=== PATIENT | male | born 1955 | race Caucasian/White ===

== ENCOUNTER 2018-05-08 16:38 | Observation (INO) | payer OTHER ==
[2018-05-08 19:45] LABS: Absolute Lymphocytes (CBC) 0.7 K/uL (0.7-4.9); Absolute Monocytes 1.1 K/uL (0.1-1.3); Absolute Neutrophil 15.5 K/uL (1.8-8.0); Basophils % 0.1 % (0-1.3); Eosinophils % 0.1 % (0-4.4); Hematocrit 42.3 % (39.6-49.0); Lymphocytes % 4.2 % (15.3-44.8); MPV 8.6 fL (7.6-11.3); Monocytes % 6.4 % (3.3-12.3); RBC Red Blood Cell Count 4.53 M/uL (4.33-5.43)
--- NOTE | 2018-05-08 19:55 | ER ---
Nurse's Notes [facility] Name: Dav Beaver Age: 63 yrs Sex: Male : 1955 Arrival Date: 05/08/2018 Time: 16:43 Bed 8 Private MD: None, None Diagnosis: Cystitis-prostatitis;Retention of urine;Fever, unspecified Presentation: 05/08 16:53 Presenting complaint: Patient states: Difficulty urinating and lower abdominal pain x 2 hb days. Transition of care: patient was not received from another setting of care. Onset of symptoms was May 07, 2018. Risk Assessment: Do you want to hurt yourself or someone else?. Care prior to arrival: None. 16:53 Method Of Arrival: Ambulatory hb 16:53 Acuity: MAURICIO 3 hb 19:15 Initial Sepsis Screen: Does the patient meet any 2 criteria? Temp <36.0*C (96.8*F)) or ea > 38.3*C (100.9*F). HR > 90 bpm. Yes Does the patient have a suspected source of infection? No. Patient's initial sepsis screen is negative. Historical: - Allergies: 16:54 No Known Allergies; hb - Immunization history:: Adult Immunizations up to date. - Social history:: Smoking status: Patient/guardian denies using tobacco. - Ebola Screening: : No symptoms or risks identified at this time. - Family history:: not pertinent. - Hospitalizations: : No recent hospitalization is reported. Screenin:13 Abuse screen: Denies threats or abuse. Denies injuries from another. Nutritional bp screening: No deficits noted. Tuberculosis screening: No symptoms or risk factors identified. Fall Risk None identified. Assessment: 18:30 General: Appears in no apparent distress. uncomfortable, obese, Behavior is bp cooperative, appropriate for age, anxious. Pain: Complains of pain in pelvis. Neuro: Level of Consciousness is awake, alert, obeys commands, Oriented to person, place, time, situation, Appropriate for age. Cardiovascular: No deficits noted. Respiratory: Airway is patent is compromised Respiratory effort is even, unlabored, Respiratory pattern is regular, symmetrical. GI: No signs and/or symptoms were reported involving the gastrointestinal system. : Reports inability to void. EENT: No deficits noted. Derm: No deficits noted. Musculoskeletal: Circulation, motion, and sensation intact. Range of motion: intact in all extremities. 19:07 Reassessment: BLADDER SCAN 250ML. bp 19:15 General: Appears uncomfortable, Behavior is cooperative, appropriate for age. Pain: tl2 Complains of pain in pelvis. Neuro: Level of Consciousness is awake, alert, obeys commands, Oriented to person, place, time, situation. Cardiovascular: Patient's skin is warm and dry. Respiratory: Airway is patent Respiratory effort is even, unlabored, Respiratory pattern is regular, symmetrical. GI: No signs and/or symptoms were reported involving the gastrointestinal system. : Conn in place to gravity drainage Reports inability to void. Derm: No signs and/or symptoms reported regarding the dermatologic system. Skin is pink, warm \T\ dry. Musculoskeletal: Circulation, motion, and sensation intact. 20:30 Reassessment: Patient and/or family updated on plan of care and expected duration. Pain ea level reassessed. Patient is alert, oriented x 3, equal unlabored respirations, skin warm/dry/pink. 21:55 Reassessment: Patient and/or family updated on plan of care and expected duration. Pain ea level reassessed. Patient is alert, oriented x 3, equal unlabored respirations, skin warm/dry/pink. 22:23 Reassessment: Patient and/or family updated on plan of care and expected duration. Pain ea level reassessed. Patient is alert, oriented x 3, equal unlabored respirations, skin warm/dry/pink. Pt taken to fourth floor via stretcher per tech, pt tolerating well. Vital Signs: 16:53 BP 168 / 88; Pulse 115; Resp 20; Temp 100.7; Pulse Ox 98% on R/A; Pain 9/10; hb 19:15 BP 157 / 77; Pulse 118; Resp 19; Pulse Ox 97% ; ea 21:37 BP 135 / 67; Pulse 91; Resp 19; Temp 98.7(O); Pulse Ox 95% on R/A; ea 22:24 BP 117 / 64; Pulse 90; Resp 18; Pulse Ox 95% on R/A; ea ED Course: 16:43 Patient arrived in ED. sb2 16:44 None, None is Private Physician. sb2 16:54 Triage completed. hb 16:54 Arm band placed on. hb 18:00 Akash Crockett MD is Attending Physician. rn 18:13 Graham Chan, CHIP is Primary Nurse. bp 19:06 Conn cath inserted, using sterile technique, 18 Fr., by me, balloon inflated, to bp gravity drainage. 19:13 Patient has correct armband on for positive identification. Placed in gown. Bed in low bp position. Call light in reach. Side rails up X2. Adult w/ patient. 19:22 Attending Physician role handed off by Akash Crockett MD [facility] 19:22 Doc Alfonso MD is Attending Physician. tigist 19:25 Inserted saline lock: 20 gauge in left antecubital area, using aseptic technique. ea 19:[address] via stretcher. nj 19:52 Best Jaimes MD is Hospitalizing Provider. tigist 19:59 CT Stone Protocol In Process Unspecified. EDMS 20:07 XRAY Chest (1 view) In Process Unspecified. EDMS 21:33 No provider procedures requiring assistance completed. Patient admitted, IV remains in ea place. Administered Medications: 19:58 Drug: Rocephin - (cefTRIAXone) 2 grams Route: IVPB; Infused Over: 30 mins; Site: left ea antecubital; 20:34 Follow up: Response: No adverse reaction; IV Status: Completed infusion ea 20:00 Drug: NS 0.9% 1000 ml Route: IV; Rate: 1 bolus; Site: left antecubital; ea 22:26 Follow up: IV Status: Infusion continued upon admission ea 20:33 Drug: Flomax 0.4 mg Route: PO; ea 21:39 Follow up: Response: No adverse reaction ea 20:34 Drug: levofloxacin 500 mg Volume: 100 ml; Route: IVPB; Infused Over: 60 mins; Site: ea left antecubital; 21:38 Follow up: Response: No adverse reaction; IV Status: Completed infusion ea 21:30 Drug: Zofran 4 mg Route: IVP; Site: left antecubital; ea 22:16 Follow up: Response: No adverse reaction; Marked relief of symptoms ea 21:35 Drug: fentaNYL (PF) 25 mcg Route: IVP; Site: left antecubital; ea 22:00 Follow up: Response: No adverse reaction; Pain is decreased ea 21:38 Drug: Magnesium Sulfate 1 grams Route: IVPB; Infused Over: 1 hrs; Site: left ea antecubital; 21:48 Follow up: Response: No adverse reaction; IV Status: Infusion continued upon admission; ea IV Intake: 20ml 22:15 Drug: fentaNYL (PF) 25 mcg Route: IVP; Site: left antecubital; ea 22:24 Follow up: Response: No adverse reaction ea 22:25 Follow up: Response: Pain is decreased ea Intake: 21:48 IV: 20ml; Total: 20ml. ea Outcome: 19:54 Decision to Hospitalize by Provider. tigist 21:34 Instructed on the need for admit. ea 22:09 Admitted to Med/surg accompanied by tech, room 416, with chart, Report called to Raymundo montgomery RN on fourth floor 22:09 Condition: stable 22:31 Patient left the ED. ea Signatures: Dispatcher [employer] EDMS Doc Alfonso MD MD cha Nieto, Roman, MD MD rn Baxter, Heather, RN RN Lissa Palacios RN RN tl2 Judd Walsh Elena RN RN Graham Lopez RN RN Tonya Worthington sb2 Corrections: (The following items were deleted from the chart) 16:54 16:53 Acuity: MAURICIO 2 hb hb
--- NOTE | 2018-05-08 19:55 | EDPHYS ---
Physician Documentation [facility] Name: Dav Beaver Age: 63 yrs Sex: Male : 1955 Arrival Date: 05/08/2018 Time: 16:43 Bed 8 Private MD: None, None ED Physician Doc Alfonso HPI: 05/08 18:10 This 63 yrs old Male presents to ER via Ambulatory with complaints of Urinary rn Retention. 18:10 The patient presents with abdominal pain in the lower abdomen. rn 18:11 Onset: The symptoms/episode began/occurred 2 day(s) ago. The symptoms do not radiate. rn The symptoms are described as intermittent, sharp. Modifying factors: The symptoms are alleviated by nothing, the symptoms are aggravated by touching the area. Severity of pain: At its worst the pain was moderate in the emergency department the pain is unchanged. The patient has not experienced similar symptoms in the past. Reports for last 2 days increased difficulty urinating and lower abd pain. Feels like has UTI. Seen at clinic today, told had UTI, was urinating a little but hasn't been able to empty in 30 hours.. Historical: - Allergies: 16:54 No Known Allergies; hb - Immunization history:: Adult Immunizations up to date. - Social history:: Smoking status: Patient/guardian denies using tobacco. - Ebola Screening: : No symptoms or risks identified at this time. - Family history:: not pertinent. - Hospitalizations: : No recent hospitalization is reported. ROS: 18:13 Constitutional: + fever Eyes: Negative for injury, pain, redness, and discharge, Neck: rn Negative for injury, pain, and swelling, Cardiovascular: Negative for chest pain, palpitations, and edema, Respiratory: Negative for shortness of breath, cough, wheezing, and pleuritic chest pain, Abdomen/GI: + lower abd pain : + urinary retention MS/Extremity: Negative for injury and deformity, Skin: Negative for injury, rash, and discoloration, Neuro: Negative for headache, weakness, numbness, tingling, and seizure. Exam: 18:13 Constitutional: This is a well developed, well nourished patient who is awake, alert, rn appears a little uncomfortable Head/Face: Normocephalic, atraumatic. Eyes: Pupils equal round and reactive to light, extra-ocular motions intact. Lids and lashes normal. Conjunctiva and sclera are non-icteric and not injected. Cornea within normal limits. Periorbital areas with no swelling, redness, or edema. ENT: dry MM Cardiovascular: tachycardic, regular, no murmur Respiratory: Lungs have equal breath sounds bilaterally, clear to auscultation. No increased work of breathing, no retractions or nasal flaring. Abdomen/GI: soft, mild suprapubic tenderness, no rebound MS/ Extremity: Pulses equal, no cyanosis. Neurovascular intact. Full, normal range of motion. Equal circumference. Neuro: Awake and alert, GCS 15, oriented to person, place, time, and situation. Cranial nerves II-XII grossly intact. Motor strength 5/5 in all extremities. Sensory grossly intact. Cerebellar exam normal. Vital Signs: 16:53 BP 168 / 88; Pulse 115; Resp 20; Temp 100.7; Pulse Ox 98% on R/A; Pain 9/10; hb 19:15 BP 157 / 77; Pulse 118; Resp 19; Pulse Ox 97% ; ea 21:37 BP 135 / 67; Pulse 91; Resp 19; Temp 98.7(O); Pulse Ox 95% on R/A; ea 22:24 BP 117 / 64; Pulse 90; Resp 18; Pulse Ox 95% on R/A; ea MDM: 18:00 Patient medically screened. rn 19:22 Patient medically screened. [facility] 19:55 Data reviewed: vital signs, nurses notes, lab test result(s), EKG, radiologic studies, [facility] CT scan, plain films. 05/08 18:07 Order name: Urine Microscopic Only; Complete Time: 21: 05/08 18:07 Order name: Urine Culture rn 05/08 18:07 Order name: CBC with Diff; Complete Time: 21: 05/08 18:07 Order name: Basic Metabolic Panel; Complete Time: 21: 05/08 18:07 Order name: Blood Culture Adult (2) rn 05/08 18:07 Order name: Procalcitonin; Complete Time: 21: 05/08 19:41 Order name: LFT's; Complete Time: 21: [facility] 05/08 19:41 Order name: Magnesium; Complete Time: 21: [facility] 05/08 19:41 Order name: NT PRO-BNP; Complete Time: 21:09 [facility] 05/08 19:41 Order name: PT-INR; Complete Time: 21:09 [facility] 05/08 19:41 Order name: Troponin (emerg Dept Use Only); Complete Time: 21:09 [facility] 05/08 19:41 Order name: XRAY Chest (1 view); Complete Time: 21:09 [facility] 05/08 20:18 Order name: CBC Smear Scan; Complete Time: 21:09 [facility] 05/08 20:22 Order name: Urine Dipstick--Ancillary (enter results) [place] 05/08 18:07 Order name: Conn; Complete Time: 19:06 rn 05/08 18:07 Order name: Urine Dipstick-Ancillary (obtain specimen); Complete Time: 20:36 05/08 18:07 Order name: IV Start; Complete Time: 19:51 05/08 19:41 Order name: EKG; Complete Time: 19:42 [facility] 05/08 19:41 Order name: CT Stone Protocol; Complete Time: 21:09 [facility] 05/08 20:32 Order name: CONS Pharmacy Consult [facility] 05/08 20:32 Order name: CONS Physician Consult [facility] 05/08 20:32 Order name: Regular [facility] 05/08 18:13 Order name: Bladder Scanner; Complete Time: 19:07 05/08 19:41 Order name: Cardiac monitoring; Complete Time: 19:52 [facility] 05/08 19:41 Order name: EKG - Nurse/Tech; Complete Time: 20:35 [facility] 05/08 19:41 Order name: Labs collected and sent; Complete Time: 19:52 [facility] 05/08 19:41 Order name: O2 Per Protocol; Complete Time: 19:52 [facility] 05/08 19:41 Order name: O2 Sat Monitoring; Complete Time: 19:52 [facility] Administered Medications: 19:58 Drug: Rocephin - (cefTRIAXone) 2 grams Route: IVPB; Infused Over: 30 mins; Site: left ea antecubital; 20:34 Follow up: Response: No adverse reaction; IV Status: Completed infusion ea 20:00 Drug: NS 0.9% 1000 ml Route: IV; Rate: 1 bolus; Site: left antecubital; ea 22:26 Follow up: IV Status: Infusion continued upon admission ea 20:33 Drug: Flomax 0.4 mg Route: PO; ea 21:39 Follow up: Response: No adverse reaction ea 20:34 Drug: levofloxacin 500 mg Volume: 100 ml; Route: IVPB; Infused Over: 60 mins; Site: ea left antecubital; 21:38 Follow up: Response: No adverse reaction; IV Status: Completed infusion ea 21:30 Drug: Zofran 4 mg Route: IVP; Site: left antecubital; ea 22:16 Follow up: Response: No adverse reaction; Marked relief of symptoms ea 21:35 Drug: fentaNYL (PF) 25 mcg Route: IVP; Site: left antecubital; ea 22:00 Follow up: Response: No adverse reaction; Pain is decreased ea 21:38 Drug: Magnesium Sulfate 1 grams Route: IVPB; Infused Over: 1 hrs; Site: left ea antecubital; 21:48 Follow up: Response: No adverse reaction; IV Status: Infusion continued upon admission; ea IV Intake: 20ml 22:15 Drug: fentaNYL (PF) 25 mcg Route: IVP; Site: left antecubital; ea 22:24 Follow up: Response: No adverse reaction ea 22:25 Follow up: Response: Pain is decreased ea Disposition: 05/08/18 19:54 Hospitalization ordered by Best Jaimes for Inpatient Admission. Preliminary diagnosis are Cystitis - prostatitis, Retention of urine, Fever, unspecified. - Bed requested for Telemetry/MedSurg (Inpatient). - Status is Inpatient Admission. ea - Condition is Fair. - Problem is new. - Symptoms have improved. UTI on Admission? Yes Signatures: Dispatcher [employer] EDMS Susan Felipe RN RN kl Anderson, Corey, MD MD cha Nieto, Roman, MD MD rn Baxter, Heather, RN RN hb Antunez, Elena, RN RN ea Corrections: (The following items were deleted from the chart) : 19:54 Hospitalization Ordered by Best Jaimes MD for Inpatient Admission. Preliminary agueda diagnosis is Cystitis - prostatitis; Retention of urine; Fever, unspecified. Bed requested for Telemetry/MedSurg (Inpatient). Status is Inpatient Admission. Condition is Fair. Problem is new. Symptoms have improved. UTI on Admission? Yes. tigist 22:31 21:26 05/08/2018 19:54 Hospitalization Ordered by Best Jaimes MD for Inpatient ea Admission. Preliminary diagnosis is Cystitis - prostatitis; Retention of urine; Fever, unspecified. Bed requested for Telemetry/MedSurg (Inpatient). Status is Inpatient Admission. Condition is Fair. Problem is new. Symptoms have improved. UTI on Admission? Yes. kl
--- NOTE | 2018-05-08 20:07 | RAD REPORT ---
EXAM DESCRIPTION: CT - Stone Protocol - 05/08/2018 7:59 pm CLINICAL HISTORY: Abdominal pain, flank pain, difficulty urinating COMPARISON: CT imaging November 2012 TECHNIQUE: Axial 5 mm thick images were obtained without oral or IV contrast. The [id number] span s the entirety of the system partially obscuring uppermost abdomen and lung bases. All CT scans are performed using dose optimization technique as appropriate and may include automated exposure control or mA/KV adjustment according to patient size. FINDINGS: No hydronephrosis is present and no obstructing ureteral calculi. No suspicious renal mass es. Isodense masses and pyelonephritis are not excluded on a stone protocol CT scan. Nonspecific kitty nephric stranding is present slightly worse on the left with bilateral progression from 2012. No nono bstructing calculi seen. No significant adrenal finding. Urinary bladder is fully contracted around a Conn catheter. No acute prostate finding identifiable. Imaged portions of the liver, spleen and pancreas show no suspicious findings on non-contrast imaging . No gallbladder or biliary tree abnormality identified. No suspicious bowel findings. No mass or bulky lymphadenopathy. Bilateral fat filled inguinal hernias are present. No free air, alex e fluid or inflammatory stranding. Disc and bony degenerative changes are present. Prominent vascular calcifications present. IMPRESSION: No hydronephrosis, obstructing calculus or acute finding identifiable. Isodense masses and pyelonephritis are not excluded on stone protocol technique. No urinary bladder abnormality seen. Assessment is significantly limited as the bladder is fully cont racted around a Conn catheter.
[2018-05-08] MEDS ORDERED: CEFTRIAXONE/SWI 1gm 2 GM/20 ML SYR ONE (20:24)
[2018-05-08] MEDS ORDERED: Levofloxacin500mg IV 500 MG/100 ML BAG IV ONE (20:24)
[2018-05-08] MEDS ORDERED: NA CHLORIDE 0.9% 1,000 ML ONE (20:24)
[2018-05-08] MEDS ORDERED: TAMSULOSIN 0.4 MG SR CAP ONE (20:24)
[2018-05-08 20:26] LABS: Urine Blood 2+ (NEG); Urine Glucose NEGATIVE (NEG); Urine Protein 1+ (NEG); Urine pH 5.5 (5.0-7.0)
[2018-05-08 20:28] LABS: Potassium 3.8 mmol/L (3.5-5.1)
[2018-05-08] MEDS ORDERED: ONDANSETRON 4 MG/2 ML VIAL IV PRN (20:30)
[2018-05-08] MEDS ORDERED: ACETAMINOPHEN 500 MG TAB PO PRN (20:30)
[2018-05-08 20:33] LABS: Urine Bacteria <20 /HPF (NONE SEEN); Urine Culture Reflex Order NOT NEEDED; Urine RBC >50 /HPF (NONE SEEN)
[2018-05-08 20:40] LABS: Protime INR 1.2
[2018-05-08 20:45] LABS: ALT/SGPT 72 U/L (12-78); AST/SGOT 26 U/L (15-37); Albumin 3.6 g/dL (3.4-5.0); Alkaline Phosphatase 92 U/L (45-117); Bilirubin Direct 0.2 mg/dL (0-0.2); Bilirubin Total 0.6 mg/dL (0.2-1.0); Magnesium 1.6 mg/dL (1.8-2.4); NT PRO-BNP 172 pg/mL (<125); Protein, Total 6.8 g/dL (6.4-8.2); Troponin (Emerg Dept Use Only) < 0.02 ng/mL (0.0-0.045)
--- NOTE | 2018-05-08 20:47 | RAD REPORT ---
EXAM DESCRIPTION: RAD - Chest Single View - 05/08/2018 8:07 pm CLINICAL HISTORY: Abdominal pain, abdominal distention COMPARISON: None. TECHNIQUE: AP portable chest image was obtained 2005 hours . FINDINGS: Exam is limited by portable technique and large body habitus. No peripheral mass or consol idation. Lung markings are prominent in the medial right base. No right lung base abnormality seen on the earlier CT study. Heart and vasculature are normal. No measurable pleural effusion and no pneumo thorax. No acute bony abnormality seen. No acute aortic findings suspected. IMPRESSION: Limited chest film without acute cardiopulmonary finding.
[2018-05-08] MEDS ORDERED: CEFTRIAXONE 1 GM/NS 50 ML 1 GM/50 ML BAG IV SCH (21:00)
[2018-05-08] MEDS: NA CHLORIDE 0.9% 1,000 ML IV SCH ×2 (21:00→23:23)
[2018-05-08 21:05] LABS: Platelet Estimate ADEQ; Urine White Blood Cell Casts OK
[2018-05-08 21:06] LABS: Blood Morphology Comment NOT SEEN (NOT SEEN)
[2018-05-08] MEDS ORDERED: FENTANYL CITR 100 MCG/2 ML ONE (21:29)
[2018-05-08] MEDS ORDERED: MAGNESIUM SULFATE 1 gm IVPB 1 GM/100 ML BAG IV ONE (21:29)
[2018-05-08 22:53] VITALS: BMI 35.8
[2018-05-08] MEDS ORDERED: ATORVASTATIN 20 MG TAB PO SCH (23:11)
[2018-05-08] MEDS ORDERED: TERAZOSIN HCL 5 MG CAP PO SCH (23:11)
[2018-05-08] MEDS ORDERED: LORATADINE 10 MG TAB PO SCH (23:11)
[2018-05-08] MEDS ORDERED: HOME MED 1 EA UNK (Albuterol Sulfate [Proair Respiclick] 1 PUFF) IH PRN (23:11)
[2018-05-08] MEDS: MORPHINE 2 MG/ML SYR IV PRN (23:14)
[2018-05-08] MEDS: METOPROLOL TAR 50 MG TAB PO SCH (23:57)
[2018-05-09] MEDS: MORPHINE 2 MG/ML SYR IV PRN (00:30)
[2018-05-09] MEDS: MORPHINE 4 MG/ML SYR IV PRN ×2 (04:18→08:34)
[2018-05-09 06:22] LABS: Absolute Lymphocytes (CBC) 1.1 K/uL (0.7-4.9); Absolute Monocytes 1.2 K/uL (0.1-1.3); Absolute Neutrophil 13.3 K/uL (1.8-8.0); Basophils % 0.3 % (0-1.3); Hematocrit 36.8 % (39.6-49.0); Lymphocytes % 6.9 % (15.3-44.8); MPV 8.4 fL (7.6-11.3); RBC Red Blood Cell Count 3.94 M/uL (4.33-5.43)
[2018-05-09] MEDS ORDERED: PANTOPRAZOLE 40MG TABLET PO SCH (06:30)
[2018-05-09 06:39] LABS: Magnesium 2.1 mg/dL (1.8-2.4); Phosphorus 3.1 mg/dL (2.5-4.9); Potassium 4.2 mmol/L (3.5-5.1)
[2018-05-09] MEDS ORDERED: INFLUENZA VACCINE (for 3y+) 0.5 ML DOSE IMVAC ONE (08:00)
[2018-05-09] MEDS ORDERED: PNEUMOCOCCAL VACCINE 0.5 ML IMVAC ONE (08:00)
[2018-05-09] MEDS: METOPROLOL TAR 50 MG TAB PO SCH (08:40)
[2018-05-09] MEDS: NA CHLORIDE 0.9% 1,000 ML IV SCH (08:42)
--- NOTE | 2018-05-09 08:55 | P.HP ---
Certification for Inpatient Patient admitted to: Inpatient With expected LOS: >2 Midnights Patient will require the following post-hospital care: None Practitioner: I am a practitioner with admitting privileges, knowledge of patient current condition, hospital course, and medical plan of care. Services: Services provided to patient in accordance with Admission requirements found in Title 42 Section 412.3 of the Code of Federal Regulations Patient History Date of Service: 05/09/18 Reason for admission: Pelvic/perineal pain History of Present Illness: Patient is a 63-year-old gentleman who came into the hospital with perineal pain. Patient's pain was severe whenever he sat down. It has been going on for the last couple of days but progressively getting worse. Patient came into the hospital for further evaluation. In the emergency room patient was found to have prostatitis. We went ahead and we will admit the patient for IV antibiotics. Patient is not tolerating diet. Will keep NPO for now. Reassess later today. If patient is doing better then patient may be able to stay discharge this morning. Allergies pravastatin Allergy (Verified 05/08/18 22:47) Nausea/Vomiting simvastatin Allergy (Verified 05/08/18 22:46) Nausea/Vomiting Home Medications: Albuterol Sulfate [Proair Respiclick] 1 puff IH DIRECTED PRN 05/08/18 Allopurinol 300 mg PO BEDTIME 05/08/18 Atorvastatin Calcium [Lipitor*] 20 mg PO BEDTIME 05/08/18 Ezetimibe 10 mg PO BEDTIME 05/08/18 Imiquimod [Aldara] 1 each TP DAILY 05/08/18 Lisinopril/Hydrochlorothiazide [Lisinopril-Hctz 10-12.5 mg Tab] 1 tab PO DAILY 05/08/18 Loratadine [Claritin*] 10 mg PO BEDTIME 05/08/18 Metoprolol Tartrate [Lopressor*] 50 mg PO BID 05/08/18 Omeprazole 20 mg PO BEDTIME 05/08/18 Terazosin HCl [Hytrin*] 5 mg PO BEDTIME 05/08/18 - Past Medical/Surgical History Has patient received pneumonia vaccine in the past: No -: HTN -: GOUT -: ASTHMA -: HLD -: Skin cancers on face -: seasonal allergies Past Surgical History: Unable to obtain - Social History Smoking Status: Never smoker Alcohol use: Yes CD- Drugs: No Caffeine use: Yes Place of Residence: Home Review of Systems 10-point ROS is otherwise unremarkable Physical Examination - Vital Signs Temperature: 98 F Blood Pressure: 127/59 Pulse: 71 Respirations: 18 Pulse Ox (%): 93 - Physical Exam General: Alert, In no apparent distress, Oriented x3, Cachectic, Disheveled HEENT: Atraumatic, PERRLA, Mucous membr. moist/pink, EOMI, Sclerae nonicteric Neck: Supple, 2+ carotid pulse no bruit, No LAD, Without JVD or thyroid abnormality Respiratory: Clear to auscultation bilaterally, Normal air movement Cardiovascular: Regular rate/rhythm, Normal S1 S2, No murmurs Gastrointestinal: Normal bowel sounds, Soft and benign, Non-distended, No tenderness Musculoskeletal: Tenderness Integumentary: No rashes Neurological: Normal gait, Normal speech, Normal strength at 5/5 x4 extr, Normal tone, Normal affect Lymphatics: No axilla or inguinal lymphadenopathy - Studies Laboratory Data (last 24 hrs) 05/08/18 20:18: PT 14.1 H, INR 1.20 05/08/18 20:18: Magnesium 1.6 L, Total Bilirubin 0.6, AST 26, ALT 72, Alkaline Phosphatase 92 05/08/18 19:25: Sodium 140, Potassium 3.8, BUN 23 H, Creatinine 1.29, Glucose 118 H 05/08/18 19:25: WBC 17.3 H, Hgb 13.9, Hct 42.3, Plt Count 183 Assessment & Plan - Problems (Diagnosis) (1) Left lower lobe pneumonia Current Visit: Yes Status: Acute (2) Prostatitis Current Visit: Yes Status: Acute (3) Leukocytosis Current Visit: Yes Status: Acute - Plan Plan: 1. IV antibiotics 2. IV hydration 3. nephrology consultation 4. Urology consultation 5. continue to get swelling decreased and reassess in a.m. 6. GI and DVT prophylaxis Discharge Plan: Transfer - Advance Directives Does patient have a Living Will: No Does patient have a Durable POA for Healthcare: No - Code Status/Comfort Care Code Status Assessed: No Code Status: Full Code Comfort Measures: Palliative Care Critical Care: No Time Spent Managing PTS Care (In Minutes): 55
[2018-05-09] MEDS ORDERED: IMIQUIMOD TP SCH (09:00)
[2018-05-09] MEDS ORDERED: CEFTRIAXONE/SWI 1gm 1 GM/10 ML SYR IV SCH (09:00)
[2018-05-09] MEDS ORDERED: LISINOPRIL 10 MG TAB PO SCH (09:00)
[2018-05-09] MEDS ORDERED: HOME MED 1 EA UNK (Lisinopril/Hydrochlorothiazide [Lisinopril-Hctz 10-12.5 Mg Tab] 1 TAB) PO SCH (09:00)
[2018-05-09] MEDS ORDERED: hydroCHLOROthiazide 12.5 MG CAP PO SCH (09:00)
--- NOTE | 2018-05-09 09:56 | EKG ---
Test Date: 2018-05-08 Test Time: 20:19:05 Boat Dock Operator: HYACINTH MEASUREMENT RESULTS: Intervals: Rate: 94 CO: 186 QRSD: 84 QT: 328 QTc: 410 [place]: P: 55 CO: 186 QRS: 8 T: 37 INTERPRETIVE STATEMENTS: Normal sinus rhythm Possible Left atrial enlargement Borderline ECG Compared to ECG 11/29/2012 13:16:56 Sinus bradycardia no longer present Electronically Signed On 05-09-18 09:55:36 [employer] ARCHITECT by Haseeb Franklin
[2018-05-09 11:33] VITALS: O2SAT 93
--- NOTE | 2018-05-09 13:10 | CON ---
History Of Present Illness: This is a 63-year-old gentleman who is admitted to the hospital for acute prostatitis. The patient said this hurts a lot when he sits down. He said that he had acute prostatitis about 25 years ago, has not had any since. He was complaining of decrease in force of stream. When he came to the ER, they put a catheter in that released 300 cc of urine. He is normally on Hytrin 5 mg a day. I have told him we can up the Hytrin to 10 mg a day. If he is having difficulty voiding, we are going to remove the catheter. He was too tender to do a rectal exam, so we skipped that stage. He does have a history of BPH and elevated PSA years ago up to 15. He had a negative biopsy by the [facility] 20 years ago. His recent PSA last year was less than 1 at the [facility] and his urine was negative. The plan is to remove his catheter and have him void, send him home on 3 weeks of antibiotics. He can increase his Hytrin to 10 mg. He can follow up with me in 3 weeks or the [facility]. He says he may follow up with me , which is fine. Allergies: TO PRAVASTATIN, CAUSES NAUSEA AND VOMITING; SIMVASTATIN, CAUSES NAUSEA AND VOMITING. Home Medications: Albuterol, allopurinol, atorvastatin, ezetimibe, Aldara, lisinopril, hydrochlorothiazide, Claritin, Lopressor, omeprazole, and terazosin 5 mg. Past Medical History: Hypertension, gout, asthma, skin cancer, seasonal allergies. Social History: Never smoked. No alcohol use. No drugs. No caffeine use. Resides at home. Review of Systems: A 10-point review of systems is otherwise unremarkable. Physical Examination: Vital Signs: Temperature 98, pulse 71, respiratory rate 18, BP 127/59, and saturations 93%. General: He is alert and oriented x3. Not cachectic, not dishevelled. HEENT: Atraumatic and normocephalic. Neck: Supple. No JVD. Respiratory: Clear. Cardiovascular: S1 and S2. Gastrointestinal: Soft. Normal bowel sounds. Nondistended, not tender. Musculoskeletal: No tenderness. Normal range of motion. Skin: No rashes. Neurological: Alert and oriented. Normal speech. Normal gait. Lymphatics: No axillary lymphatics. Laboratory Studies: Reviewed. His white count on admission was 17.3, now it is down to 15.6, H and H of 12 and 36, platelet count 151, down from 183. Coagulations normal. Chemistry: Sodium 139, potassium 4.2, chloride 106, carbon dioxide 30, BUN 20, creatinine 1.0, GFR is 70, glucose 110, calcium 8.1. PSA done 7.5 in the face of acute prostatitis. Procalcitonin level normal 0.06. Urine study; pH 5.5, 2+ blood, nitrite negative, leukocyte 1+, rbc's greater than 50, bacteria less than 20. Assessment: Acute prostatitis. Conn catheter is in. The patient is getting better. No fevers. White count is down. He feels better and wants to go home. We will discontinue his catheter and make sure he can void prior to discharge, he can double up on his Hytrin, take antibiotics for 3 weeks, do warm sitz baths at home, follow up with [facility] 3 weeks or [facility]. HAO/HAMILTON Voice ID: [id number] Report ID: [id number] [id number]
[2018-05-09 16:24] VITALS: BP 114/55; TEMP 99.6
[2018-05-09] MEDS ORDERED: EZETIMIBE 10 MG TAB PO SCH (21:00)
[2018-05-09] MEDS ORDERED: ALLOPURINOL 300 MG TAB PO SCH (21:00)
== END 2018-05-09 16:24 | disposition home or self-care (01) ==
LOC: ER 16:38 → INTOOBSV 20:32 → ERHOLD 20:32 → 4TH 22:13
PROVIDERS: ADMIT Hospitalist; ATTEND Hospitalist
DX: J18.9 Pneumonia, unspecified organism (principal); N41.0 Acute prostatitis; D72.829 Elevated white blood cell count, unspecified; M10.9 Gout, unspecified; E78.5 Hyperlipidemia, unspecified; I10 Essential (primary) hypertension
CPT/HCPCS: 36415; 51702; 71045; 74176; 76377; 80048; 80076; 81003; 81015; 83735; 83880; 84100; 84145; 84153; 84484; 85025; 85610; 87040; 87086; 87088; 93005; 96361; 96365; 96367; 96375; 99285; G0378; J0696; J2270; J2405; J3010; J3475; J7030